=== PATIENT | male | born 2005 | race African-American/Black ===

== ENCOUNTER 2023-03-20 03:12 | Emergency (ER) | payer OTHER ==
[~2023-03-20] VITALS: Ht 160 cm; Wt 65.8 kg
[2023-03-20 03:14] VITALS: BP 140/71
[2023-03-20 03:40] LABS: BASOPHILS % (AUTO) 1.4 % (0.0-5.0); EOSINOPHILS % (AUTO) 2.4 % (0.0-8.0); HEMATOCRIT 44.2 % (42-54); MEAN CORPUSCULAR HEMOGLOBIN 30.6 pg (27.0-33.0); MEAN CORPUSCULAR HGB CONC 35.1 g/dL (32.0-36.0); MEAN CORPUSCULAR VOLUME 87.2 fL (80-100); MONOCYTES % (AUTO) 7.3 % (3.0-13.0); NEUTROPHILS % (AUTO) 61.7 % (40.0-77.0); PLATELET COUNT (AUTO) 299 K/uL (130-400); RED BLOOD CELL COUNT(AUTO) 5.07 MIL/uL (4.50-6.20); RED CELL DISTRIBUTION WIDTH 11.4 % (11.0-15.5)
[2023-03-20 03:47] LABS: CARBON DIOXIDE 31 mmol/L (21-32); CHLORIDE 103 mmol/L (101-111); CREATININE 1.3 mg/dL (0.5-1.5); GLOMERULAR FILTR. RATE CALC 81 mL/min (>90); GLUCOSE,RANDOM 94 mg/dL (70-105); POTASSIUM 4.3 mmol/L (3.5-5.1); SODIUM SERUM 141 mmol/L (136-145); UREA NITROGEN, BLOOD 16 mg/dL (7-18)
[2023-03-20 03:52] LABS: ACETAMINOPHEN < 1 mcg/mL (10-29); ALANINE AMINOTRANSFERASE 34 U/L (12-78); ALBUMIN 4.5 g/dL (3.5-5.0); ASPARTATE AMINOTRANSFERASE 20 U/L (10-37); CREATINE KINASE, TOTAL 364 U/L (21-232); SALICYLATE < 2.8 mg/dL (2.8-20.0); TOTAL PROTEIN, SERUM 8.1 g/dL (6.0-8.3)
[2023-03-20 04:24] LABS: APPEARANCE,URINE CLEAR (CLEAR); BILIRUBIN,URINE NEGATIVE (NEGATIVE); COLOR,URINE LIGHT-YELLOW (YELLOW); GLUCOSE, URINE (UA) NEGATIVE (NEGATIVE); KETONES,URINE NEGATIVE (NEGATIVE); LEUKOCYTE ESTERASE ,URINE NEGATIVE Leu/uL (NEGATIVE); NITRATE,URINE NEGATIVE (NEGATIVE); OCCULT BLOOD,URINE NEGATIVE (NEGATIVE); PH,URINE 6.5 (5.0-8.0); PROTEIN,URINE 20 mg/dL (NEGATIVE); UROBILINOGEN,URINE 0.2 mg/dL (0.2-1.0)
[2023-03-20 04:28] LABS: MUCUS,URINE RARE LPF (None Seen); RBC,URINE 0-1 /HPF (0-1); SQUAMOUS EPITHELIAL CELL,UR RARE /HPF (0-2); WBC,URINE 0-1 /HPF (0-1)
[2023-03-20 04:31] LABS: AMPHET/METH SCREEN,URINE NEGATIVE (NEGATIVE); BARBITURATE SCREEN, URINE NEGATIVE (NEGATIVE); BENZODIAZEPINES SCREEN,URINE NEGATIVE (NEGATIVE); CANNABINOID SCREEN,URINE NEGATIVE (NEGATIVE); COCAINE SCREEN,URINE NEGATIVE (NEGATIVE); OPIATE SCREEN,URINE NEGATIVE (NEGATIVE); PHENCYCLIDINE SCREEN,URINE NEGATIVE (NEGATIVE)
== END 2023-03-20 04:54 | disposition home or self-care (01) ==
LOC: EDH 03:12
DX: F19.10 Other psychoactive substance abuse, uncomplicated (principal)
CPT/HCPCS: 99284; 82550; 80053; 80305; 85025; 81001; 36415; 93005; G0481

== ENCOUNTER 2023-04-21 17:35 | Emergency (ER) | payer OTHER ==
[~2023-04-21] VITALS: Ht 160 cm; Wt 65.8 kg
[2023-04-21 17:38] VITALS: BP 151/86
[2023-04-21 18:21] LABS: BASOPHILS % (AUTO) 0.9 % (0.0-5.0); EOSINOPHILS % (AUTO) 0.1 % (0.0-8.0); HEMATOCRIT 44.6 % (42-54); LYMPHOCYTES % (AUTO) 19.2 % (21.0-51.0); MEAN CORPUSCULAR HEMOGLOBIN 29.9 pg (27.0-33.0); MEAN CORPUSCULAR HGB CONC 35.9 g/dL (32.0-36.0); MEAN CORPUSCULAR VOLUME 83.2 fL (80-100); MONOCYTES % (AUTO) 7.8 % (3.0-13.0); NEUTROPHILS % (AUTO) 71.7 % (40.0-77.0); PLATELET COUNT (AUTO) 370 K/uL (130-400); RED BLOOD CELL COUNT(AUTO) 5.36 MIL/uL (4.50-6.20); RED CELL DISTRIBUTION WIDTH 11.5 % (11.0-15.5); WHITE BLOOD COUNT (AUTO) 7.9 K/uL (4.8-10.8)
[2023-04-21 18:29] LABS: CARBON DIOXIDE 27 mmol/L (21-32); CHLORIDE 101 mmol/L (101-111); CREATININE 1.2 mg/dL (0.5-1.5); GLOMERULAR FILTR. RATE CALC 89 mL/min (>90); GLUCOSE,RANDOM 102 mg/dL (70-105); POTASSIUM 3.9 mmol/L (3.5-5.1); SODIUM SERUM 138 mmol/L (136-145); UREA NITROGEN, BLOOD 28 mg/dL (7-18)
[2023-04-21 18:35] LABS: ALANINE AMINOTRANSFERASE 39 U/L (12-78); ALBUMIN 4.8 g/dL (3.5-5.0); ASPARTATE AMINOTRANSFERASE 30 U/L (10-37); CREATINE KINASE, TOTAL 299 U/L (21-232); TOTAL PROTEIN, SERUM 8.4 g/dL (6.0-8.3)
[2023-04-21 18:37] LABS: SALICYLATE < 2.8 mg/dL (2.8-20.0)
[2023-04-21 18:39] LABS: ACETAMINOPHEN < 1 mcg/mL (10-29)
[2023-04-21] MEDS ORDERED: 0.9%NACL 1000ML 1,000 ML IV SCH ×2 (19:00)
[2023-04-21] MEDS ORDERED: LORAZEPAM 2 MG/ML 1 ML VIAL ONE ×2 (19:12→19:31)
[2023-04-21] MEDS ORDERED: LORAZEPAM 2 MG TABLET PO ONE (19:12)
== END 2023-04-21 20:06 ==
LOC: EDH 17:35 → EEVIPCON 17:35 → EDH 20:06
DX: T43.221A Poisoning by selective serotonin reuptake inhibitors, accidental (unintentional), initial encounter (principal); Y92.89 Other specified places as the place of occurrence of the external cause
CPT/HCPCS: 99284; 82550; 80053; 85025; 36415; 93005; G0481; J2060 ×2

== ENCOUNTER 2023-06-23 00:17 | Emergency (ER) | payer OTHER ==
[2023-06-23 00:56] VITALS: BP 125/77; PULSE 70; RESP 16
[2023-06-23] MEDS ORDERED: AMOX-427 PO (04:46)
[2023-06-23] MEDS ORDERED: AMOX/CLAV 875/125MG TAB PO ONE (05:00)
[2023-06-23] MEDS ORDERED: TETANUS/DIPHTHERIA TOXOID [ADULT] 0.5 ML VIAL IM ONE (05:00)
== END 2023-06-23 05:48 ==
LOC: EDH 00:17 → EEVIPCON 00:17 → EDH 05:48
DX: S50.872A Other superficial bite of left forearm, initial encounter (principal); Y04.1XXA Assault by human bite, initial encounter; Y93.89 Activity, other specified; Y92.89 Other specified places as the place of occurrence of the external cause
CPT/HCPCS: 90471; 90714

== ENCOUNTER 2023-07-09 20:27 | Emergency (ER) | payer OTHER ==
[~2023-07-09] VITALS: Ht 170.2 cm; Wt 68.0 kg
[~2023-07-09 20:27] MED LIST: AMOX-427 PO
[2023-07-09] MEDS ORDERED: ZOSYN 3.375GM +NS 50ML IVPB ONE (20:30)
[2023-07-09] MEDS ORDERED: MUPI15C TP (22:46)
[2023-07-09 22:55] VITALS: BP 127/72; PULSE 62; RESP 16; O2SAT 98
== END 2023-07-09 23:13 | disposition home or self-care (01) ==
LOC: EDH 20:27
DX: S61.452A Open bite of left hand, initial encounter (principal); Y04.1XXA Assault by human bite, initial encounter; Y93.89 Activity, other specified; Y92.89 Other specified places as the place of occurrence of the external cause; Y99.8 Other external cause status
CPT/HCPCS: 99284; 96365; 96366; 73130; J2543

== ENCOUNTER 2023-07-15 22:06 | Emergency (ER) | payer OTHER ==
[~2023-07-15 22:06] MED LIST changes: +MUPI15C TP
[2023-07-15] MEDS ORDERED: PENICILLIN G BENZATHINE LA 1.2 MILUNITS/2 ML SYG IM ONE (23:00)
[2023-07-15] MEDS ORDERED: TETANUS/DIPHTHERIA TOXOID [ADULT] 0.5 ML VIAL IM ONE (23:00)
[2023-07-15 23:50] LABS: BASOPHILS # (AUTO) 0.07 K/uL (0.00-0.20); BASOPHILS % (AUTO) 1.3 % (0.0-5.0); EOSINOPHILS # (AUTO) 0.33 K/uL (0.00-0.70); EOSINOPHILS % (AUTO) 6.2 % (0.0-8.0); HEMATOCRIT 39.2 % (42-54); IMMATURE GRANULOCYTE ABSOLUTE 0.01 K/uL (0-1); LYMPHOCYTES # (AUTO) 1.7 K/uL (1.0-4.8); LYMPHOCYTES % (AUTO) 32.1 % (21.0-51.0); MEAN CORPUSCULAR HEMOGLOBIN 30.4 pg (27.0-33.0); MEAN CORPUSCULAR HGB CONC 35.2 g/dL (32.0-36.0); MEAN CORPUSCULAR VOLUME 86.3 fL (80-100); MONOCYTES # (AUTO) 0.4 K/uL (0.1-1.0); MONOCYTES % (AUTO) 7.1 % (3.0-13.0); NEUTROPHILS # (AUTO) 2.8 K/uL (1.8-7.7); NEUTROPHILS % (AUTO) 53.1 % (40.0-77.0); PLATELET COUNT (AUTO) 293 K/uL (130-400); RED BLOOD CELL COUNT(AUTO) 4.54 MIL/uL (4.50-6.20); RED CELL DISTRIBUTION WIDTH 11.4 % (11.0-15.5); WHITE BLOOD COUNT (AUTO) 5.4 K/uL (4.8-10.8)
[2023-07-16 00:04] LABS: CARBON DIOXIDE 29 mmol/L (21-32); CHLORIDE 105 mmol/L (101-111); CREATININE 1.2 mg/dL (0.5-1.5); GLOMERULAR FILTR. RATE CALC 89 mL/min (>90); GLUCOSE,RANDOM 78 mg/dL (70-105); POTASSIUM 4.1 mmol/L (3.5-5.1); SODIUM SERUM 141 mmol/L (136-145); UREA NITROGEN, BLOOD 17 mg/dL (7-18)
[2023-07-16 00:09] LABS: CREATINE KINASE, TOTAL 117 U/L (21-232)
[2023-07-16 00:11] LABS: ACETAMINOPHEN < 1 mcg/mL (10-29); ALCOHOL, BLOOD < 3 mg/dL (0-10); SALICYLATE < 2.8 mg/dL (2.8-20.0)
[2023-07-16 00:48] LABS: APPEARANCE,URINE CLEAR (CLEAR); BILIRUBIN,URINE NEGATIVE (NEGATIVE); COLOR,URINE YELLOW (YELLOW); GLUCOSE, URINE (UA) NEGATIVE (NEGATIVE); KETONES,URINE NEGATIVE (NEGATIVE); LEUKOCYTE ESTERASE ,URINE NEGATIVE Leu/uL (NEGATIVE); NITRATE,URINE NEGATIVE (NEGATIVE); OCCULT BLOOD,URINE NEGATIVE (NEGATIVE); PROTEIN,URINE 30 mg/dL (NEGATIVE); UROBILINOGEN,URINE 3 mg/dL (0.2-1.0)
[2023-07-16 00:50] LABS: ADD UA MICROSCOPIC NO
[2023-07-16] MEDS ORDERED: CEFTRIAXONE 2GM VIAL ONE (00:57)
[2023-07-16 01:01] LABS: AMPHET/METH SCREEN,URINE NEGATIVE (NEGATIVE); BARBITURATE SCREEN, URINE NEGATIVE (NEGATIVE); BENZODIAZEPINES SCREEN,URINE NEGATIVE (NEGATIVE); CANNABINOID SCREEN,URINE NEGATIVE (NEGATIVE); COCAINE SCREEN,URINE NEGATIVE (NEGATIVE); OPIATE SCREEN,URINE NEGATIVE (NEGATIVE); PHENCYCLIDINE SCREEN,URINE NEGATIVE (NEGATIVE)
[2023-07-16] MEDS ORDERED: CEFTRIAXONE 2GM VIAL IJ ONE (01:30)
[2023-07-16] MEDS ORDERED: CEPH500B PO (03:49)
[2023-07-16 03:57] VITALS: BP 113/68; PULSE 64; RESP 18; O2SAT 99
== END 2023-07-16 04:15 | disposition home or self-care (01) ==
LOC: EDH 22:06
DX: S51.802A Unspecified open wound of left forearm, initial encounter (principal); Y33.XXXA Other specified events, undetermined intent, initial encounter; Y93.89 Activity, other specified; Y92.89 Other specified places as the place of occurrence of the external cause; Y99.8 Other external cause status
CPT/HCPCS: 99283; 82550; 80048; 80305; 85025; 36415; 81003; 90714; 90471; J0696; G0481